=== PATIENT | male | born 1955 | race African-American/Black ===

== ENCOUNTER 2020-01-26 11:25 | Emergency (ER) | payer MEDICARE, SELFPAY ==
[2020-01-26 11:29] VITALS: BP 149/98; PULSE 88; RESP 18; O2SAT 99; BMI 18.8
--- NOTE | 2020-01-26 11:51 | ECG_ITS ---
APPROVED REPORT Exam: Resting ECG HR:86 bpm ECG Measurements Heart Rate 86 AXES [place] 164 P 40 QRSd 90 QRS -35 QT 424 T 110 QTc 507 <Conclusion> Sinus rhythm with occasional premature ventricular complexes Possible Left atrial enlargement Left axis deviation ST & T wave abnormality, consider lateral ischemia Prolonged QT Abnormal ECG Electronically signed by : Sony Simms, 01/27/2020 17:42:04
--- NOTE | 2020-01-26 11:56 | XR_ITS ---
PROCEDURE: XR CHEST PORTABLE CLINICAL HISTORY: chest pain COMPARISON: No exams were available for comparison FINDINGS: The lung chavez are fairly well expanded and appear clear of infiltrate. There is moderate cardiomegaly with left ventricular prominence. The pulmonary vascularity appears normal. There is a left-sided cardiac pacemaker with dual chamber electrodes both in good position. There monitor lines overlying the chest. There is no pleural fluid. Degenerative spurring is seen in both AC joints. IMPRESSION: Moderate cardiomegaly, no acute chest pathology noted Dictated by: Dr. Breezy Sood MD 01/26/2020 13:[address] Breezy Sood MD in [place] 01/26/2020 13:36
[2020-01-26 12:06] LABS: Basophils # 0.1 K/mm3 (0-0.2); Basophils % 0.8 % (0.1-2.0); Eosinophils # 0.3 K/mm3 (0.0-0.4); Hematocrit 40.8 % (42.0-52.0); Hemoglobin 13.6 g/dL (14.1-18.0); Lymphocytes # 3.1 K/mm3 (0.7-4.5); Lymphocytes % 31.3 % (10-50); Mean Corpuscular HGB Conc 33.4 g/dL (31.8-35.4); Mean Corpuscular Hemoglobin 31.8 pg (27.0-31.2); Mean Corpuscular Volume 95.2 fl (80-94); Mean Platelet Volume 8.4 fl (7.4-10.4); Monocytes # 0.5 K/mm3 (0.1-1.0); Monocytes % 5.4 % (1.7-9.3); Neutrophils # 5.9 K/mm3 (1.8-7.8); Neutrophils % 59.5 % (37.0-80.0); Platelet Count 189 K/mm3 (142-424); Red Blood Count 4.28 M/mm3 (4.60-6.20); Red Cell Distribution Width 14.1 % (11.5-17.5); White Blood Count 9.9 K/mm3 (4.8-10.8)
[2020-01-26 12:09] LABS: Chloride 98 mmol/L (98-107)
[2020-01-26 12:10] LABS: Potassium 3.5 mmoL/L (3.5-5.1); Sodium 141 mmol/L (136-145)
[2020-01-26 12:12] LABS: Blood Urea Nitrogen 13 mg/dl (9-20); Creatinine Clearance Estimated 47 mL/min (50-200); Estimated Glomerular Filt Rate 61 ml/min (>60); GFR (African American) 73 ML/MIN (>60)
[2020-01-26 12:13] LABS: Anion Gap 11.5 mEq/L (5-15); Calcium 9.2 mg/dl (8.4-10.2); Carbon Dioxide 35 mmol/L (22.0-30.0); Glucose 104 mg/dl (74-100)
[2020-01-26 12:29] LABS: Troponin I 0.01 ng/ml (0.00-0.034)
[2020-01-26 12:43] VITALS: BP 151/96; PULSE 77; O2SAT 97
[2020-01-26 13:07] VITALS: BP 157/100; PULSE 77; O2SAT 98
--- NOTE | 2020-01-26 13:11 | HMH.EDGENADL ---
ED Disposition Clinical Impression: Delusions Disposition: Home, Self-Care Condition on Discharge: Good Instructions: DI for Acute Pain -- Adult Referrals: Provider,Referral, [Primary Care Provider] - - Critical Care Critical Care Time: No Attestation: On 01/26/20, the high probability of a clinically significant, sudden or life threatening deterioration of the following system(s) required my full and direct attention, intervention and personal management. The time I documented below is in addition to time spent performing reported procedures but includes the following listed in this critical care notation. Medical Decision Making - Medical Records Medical records reviewed: Yes: I reviewed the patient's medical records. - Frederic Inquiry Pt receiving controlled substance: No Vital Signs: 01/26/20 11:29 01/26/20 12:43 01/26/20 13:07 Pulse Rate [Radial] 88 77 77 Respiratory Rate 18 Blood Pressure [Right Arm] 149/98 H 151/96 H 157/100 H Blood Pressure Mean [Right Arm] 115 114 119 Blood Pressure Source [Right Arm] Automatic Cuff Automatic Cuff Automatic Cuff Blood Pressure Position [Right Arm] Sitting Sitting Sitting 02 Sat by Pulse Oximetry 99 97 98 Oxygen Delivery Method Room Air Room Air Room Air - Lab Data Lab results reviewed: Yes: I reviewed the patient's lab results. Lab Results 01/26/20 11:52: WBC 9.9, RBC 4.28 L, Hgb 13.6 L, Hct 40.8 L, MCV 95.2 H, MCH 31.8 H, MCHC 33.4, RDW 14.1, Plt Count 189, MPV 8.4, Neut % (Auto) 59.5, Lymph % (Auto) 31.3, Reeves % (Auto) 5.4, Eos % (Auto) 3.0, Baso % (Auto) 0.8, Neut # (Auto) 5.9, Lymph # (Auto) 3.1, Reeves # (Auto) 0.5, Eos # (Auto) 0.3, Baso # (Auto) 0.1 01/26/20 11:52: Sodium 141, Potassium 3.5, Chloride 98, Carbon Dioxide 35 H, Anion Gap 11.5, BUN 13, Creatinine 1.20, Estimated Creat Clear 47, Estimated GFR 61, Est GFR ( Amer) 73, Glucose 104 H, Calcium 9.2, Troponin I 0.01 Result diagrams: 01/26/20 11:52 01/26/20 11:52 Orders (Tests/Meds): ORDERS Category Date Time Status XR chest portable Stat Exams 01/26/20 11:56 Taken Troponin I Q3H Lab 01/26/20 15:00 Ordered Troponin I Q3H Lab 01/26/20 18:00 Ordered - ECG Data Tracing #1 I reviewed this ECG and interpreted as documented below: Normal Sinus Rhythm: Yes General Adult HPI - General Chief complaint: PAIN Stated complaint: be checked out Time Seen by Provider: 01/26/20 13:11 Mode of Arrival: Wheelchair Source of Information: Patient Limitations: No Limitations Description of Symptoms (Recalled from ER Triage Doc. by RN): States he got a phone call from GOD this morning telling him he was having a heart attack. States he has been having left sided chest pain for approx 3 weeks. - History of Present Illness HPI narrative: 64-year-old pleasant gentleman presents the ED stating that he woke up this morning and he heard a voice in his head that was God telling him that he had a heart attack. He presents here with no other symptoms. He did state about 3 weeks ago he had some chest pain but presently he is pain-free. Patient denies any other symptoms. Patient states that he has no other symptoms. Patient denies any sore throat or cough. Patient denies any headache or shortness of breath. Patient denies any general malaise or fatigue. Patient does state he has some arthralgias but that is normal for him secondary to osteoarthritis. - Related Data Allergies Allergy/AdvReac Type Severity Reaction Status Date / Time No Known Allergies Allergy Verified 01/26/20 11:56 [facility] History - Hepatitis A Screen Drug use history?: No High risk sexual behaviors?: No History of sexually transmitted infection?: No Currently employed?: No Childcare worker?: No Do you have indoor plumbing?: Yes Do you have electricity?: Yes Attestation statement:: This patient has been screened for Hepatitis A risk factors. I have reviewed the patient's past medical history: Yes
[2020-01-26 13:37] VITALS: BP 156/98; PULSE 68; RESP 16; TEMP 36.8; O2SAT 97
== END 2020-01-26 13:38 | disposition home or self-care (01) ==
PROVIDERS: Emergency Provider Family Medicine
DX: F22 Delusional disorders (principal); R07.9 Chest pain, unspecified; E78.5 Hyperlipidemia, unspecified; I10 Essential (primary) hypertension
CPT/HCPCS: 71045; 80048; 84484; 85025; 93005; 99283

== ENCOUNTER 2020-02-13 09:26 | Emergency (ER) | payer OTHER, SELFPAY ==
[2020-02-13 09:29] VITALS: BP 134/92; PULSE 71; RESP 18; TEMP 36.6; O2SAT 98; BMI 25.2
[2020-02-13 10:15] LABS: Basophils # 0.1 K/mm3 (0-0.2); Eosinophils # 0.2 K/mm3 (0.0-0.4); Eosinophils % 2.8 % (0.1-12.0); Hematocrit 40.9 % (42.0-52.0); Hemoglobin 13.3 g/dL (14.1-18.0); Lymphocytes # 1.8 K/mm3 (0.7-4.5); Lymphocytes % 24.4 % (10-50); Mean Corpuscular HGB Conc 32.5 g/dL (31.8-35.4); Mean Corpuscular Hemoglobin 31.7 pg (27.0-31.2); Mean Corpuscular Volume 97.5 fl (80-94); Mean Platelet Volume 8.1 fl (7.4-10.4); Monocytes # 0.4 K/mm3 (0.1-1.0); Monocytes % 5.2 % (1.7-9.3); Neutrophils # 4.8 K/mm3 (1.8-7.8); Neutrophils % 66.7 % (37.0-80.0); Platelet Count 180 K/mm3 (142-424); Red Cell Distribution Width 14.8 % (11.5-17.5); White Blood Count 7.2 K/mm3 (4.8-10.8)
[2020-02-13 10:32] LABS: Chloride 101 mmol/L (98-107); Potassium 3.9 mmoL/L (3.5-5.1); Sodium 141 mmol/L (136-145)
[2020-02-13 10:34] LABS: Alanine Aminotransferase 16 U/L (12-78); Alkaline Phosphatase 86 U/L (38-126); Anion Gap 13.9 mEq/L (5-15); Aspartate Amino Transferase 36 U/L (17-59); Bilirubin,Total 1.8 mg/dl (0.2-1.3); Blood Urea Nitrogen 9 mg/dl (9-20); Carbon Dioxide 30 mmol/L (22.0-30.0); Creatinine Clearance Estimated 66 mL/min (50-200); Estimated Glomerular Filt Rate 67 ml/min (>60); GFR (African American) 81 ML/MIN (>60); Lipase 36 U/L (23-300)
[2020-02-13 10:35] LABS: Albumin Level 4.3 g/dl (3.5-5.0); Calcium 9.1 mg/dl (8.4-10.2); Globulin 4.3 g/dL (1.3-3.2); Glucose 143 mg/dl (74-100); Total Protein,Serum 8.6 g/dl (6.3-8.2)
[2020-02-13 10:42] VITALS: BP 141/91; PULSE 73; RESP 20; O2SAT 99
[2020-02-13 11:02] LABS: Microscopic, Urine URINE MICROSCOPIC (MICROSCOPIC)
[2020-02-13 11:04] LABS: Appearance,Urine CLEAR (Clear); Bilirubin,Urine Negative (Negative); Blood, Urine Negative (Negative); Color,Urine YELLOW (Yellow); Glucose,Urine (UA) Negative (Negative); Ketones,Urine Negative (Negative); Leukocyte Esterase,Urine Negative (Negative); Nitrate,Urine Negative (Negative); Protein,Urine Negative (Negative)
--- NOTE | 2020-02-13 11:20 | CT_ITS ---
PROCEDURE: CT ABDOMEN PELVIS W CON CLINICAL INDICATION: abd Generalized abdominal pain COMPARISON: No exams were available for comparison TECHNIQUE: IV Contrast: 75ML OPTIRAY 350 Oral Contrast None Axial images obtained with sagittal and coronal reformats. All CT scans at the facility use one or more dose reduction, viz: automated exposure control, ma/kV adjustment per patient size (including targeted exams where dose is matched to indication, i.e. head), or iterative reconstruction technique. FINDINGS: LOWER THORAX: Cardiomegaly. Extensive coronary artery calcification and/or stents. ABDOMEN & PELVIS: Diffuse fatty liver infiltration. Cholelithiasis with a contracted gallbladder. The spleen and adrenal glands have an unremarkable appearance as does the pancreas. The stomach is slightly distended with ingested material. No renal or ureteral calculi. No intestinal obstruction or free air. No evidence of appendicitis or diverticulitis. Bowel gas pattern is nonspecific. There is mild diverticulosis of the colon but no evidence of diverticulitis. There is fusion of the SI joints on both sides. IMPRESSION: 1. Contracted gallbladder with stones. 2. Diverticulosis of the colon without diverticulitis Dictated by: Raymundo Cook MD 02/13/2020 12:00 Electronically signed by Raymundo Cook MD in [place] 02/13/2020 12:00
[2020-02-13 11:29] LABS: WBC,Urine Occasional #/hpf (0-3)
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
[2020-02-13 12:33] VITALS: BP 143/80; PULSE 69; RESP 16; TEMP 36.8; O2SAT 100
== END 2020-02-13 12:33 | disposition home or self-care (01) ==
PROVIDERS: Emergency Provider Family Medicine
DX: K80.20 Calculus of gallbladder without cholecystitis without obstruction (principal)
CPT/HCPCS: 74177; 80053; 81001; 83690; 85025; 99283; 99284; Q9967

== ENCOUNTER → 2020-03-08 14:36 | Outpatient (CLI) | payer OTHER, SELFPAY ==
--- NOTE | 2020-03-08 | CA_ITS ---
APPROVED REPORT EXAM: Comprehensive 2D, Doppler, and color-flow Echocardiogram End Lathe Operator: Sharron Louie, RT(R) Ht: 5 ft 7 in Wt: 152lbs BSA: 1.80 BP: 134/92 mmHg Indications: SOA, edema, prior echo shows 15% EF 2D Dimensions LVOT 1.80 cm (M/F) 1.5-2.5 M-Mode Dimensions RVDd 2.54 cm (0.9-2.6) LVDd 5.92 cm (3.5-5.7) LVDs 5.59 cm (3.5-5.7) IVSd 1.33 cm (0.6-1.1) PWd 0.85 cm (0.6-1.1) EF (Teich) 12.40% FS 5.60% EDV (Teich) 174.60 mL ESV (Teich) 153.00 mL Left Ventricle Left atrium is moderately enlarged, left ventricle is mildly dilated, mild concentric left ventricular hypertrophy, severe reduced left ventricular systolic function, visually estimated ejection fraction 30%, left ventricle is globally hypokinetic, there is abnormal septal motion. Doppler evidence of raise left ventricular end-diastolic pressure. Right Ventricle Right atrium and right ventricle mildly enlarged, contractility of the right ventricle is normal, there is a pacemaker or AICD lead seen in the right ventricle. Aortic Valve Aortic valve is minimally thickened and fibrosed, there is no aortic stenosis. There is no significant aortic insufficiency. Mitral Valve Mitral valve leaflets are minimally thickened, there is no mitral stenosis, there is moderate to severe mitral regurgitation. There is tall A wave with restrictive filling pattern suggestive raise left ventricular end-diastolic pressure. Tricuspid Valve Tricuspid valve is grossly normal, there is moderate tricuspid regurgitation, tricuspid regurgitation jet velocity is inadequate for calculation of the right ventricular systolic pressure. Pulmonic Valve Pulmonic valve is poorly visualized. Great Vessels Aortic root is normal size. Pericardium No significant pericardial effusion noted. Inferior vena cava is dilated without significant inspiratory collapse. Conclusion 1. Biatrial enlargement, dilated left ventricle, reduced left ventricular systolic function, visually estimated ejection fraction 30%, left ventricle is globally hypokinetic, there is abnormal septal motion, Doppler evidence of raise left ventricular end-diastolic pressure. Diastolic parameters are inconclusive. 2. Mildly enlarged right ventricle with normal contractility. 3. Moderate to severe mitral and moderate tricuspid regurgitation, tricuspid regurgitation jet velocity is inadequate for calculation of the right ventricular systolic pressure. 4. No significant pericardial effusion noted 5. Inferior vena cava is dilated without significant inspiratory collapse. Electronically signed by : Horacio Love, 03/08/2020 15:37:47
== END ==
PROVIDERS: Visit Provider Internal Medicine
DX: I50.9 Heart failure, unspecified (principal); R06.02 Shortness of breath; R60.9 Edema, unspecified
CPT/HCPCS: 93306

== ENCOUNTER 2020-04-02 07:07 | Emergency (ER) | payer MEDICARE, MEDICAID, SELFPAY ==
[2020-04-02 07:09] VITALS: BP 131/89; PULSE 109; RESP 18; TEMP 36.5; O2SAT 99; BMI 22.6
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
--- NOTE | 2020-04-02 09:01 | PC.NURSE ---
ATTEMPTED PO CHALLENGE ON PT, PT WAS ABLE TO CONSUME WATER AND SWALLOW IT BUT IT DID CAUSE HIM SOME PAIN. MD NOTIFIED.
[2020-04-02 09:10] VITALS: BP 144/98; PULSE 102; RESP 20; TEMP 36.5; O2SAT 98
== END 2020-04-02 09:14 | disposition home or self-care (01) ==
PROVIDERS: Emergency Provider Emergency Medicine
DX: S19.9XXA Unspecified injury of neck, initial encounter (principal); Y04.2XXA Assault by strike against or bumped into by another person, initial encounter; Y92.018 Other place in single-family (private) house as the place of occurrence of the external cause
CPT/HCPCS: 70360; 99282

== ENCOUNTER 2020-04-22 21:29 | Emergency (ER) | payer MEDICARE, MEDICAID, SELFPAY ==
[2020-04-22 21:24] VITALS: BP 144/90; PULSE 81; RESP 16; TEMP 36.8; O2SAT 99; BMI 23.3
--- NOTE | 2020-04-22 21:45 | PC.NURSE ---
pt presents cursing and yelling at staff. pd called. pt contained. informed he is to quit with his excessive behaviors or he will be escorted out.
[2020-04-22 22:00] LABS: Basophils # 0.1 K/mm3 (0-0.2); Basophils % 0.8 % (0.1-2.0); Eosinophils # 0.1 K/mm3 (0.0-0.4); Eosinophils % 1.7 % (0.1-12.0); Hematocrit 38.8 % (42.0-52.0); Hemoglobin 12.3 g/dL (14.1-18.0); Lymphocytes # 1.3 K/mm3 (0.7-4.5); Mean Corpuscular HGB Conc 31.7 g/dL (31.8-35.4); Mean Corpuscular Hemoglobin 30.6 pg (27.0-31.2); Mean Corpuscular Volume 96.4 fl (80-94); Mean Platelet Volume 8.8 fl (7.4-10.4); Monocytes # 0.4 K/mm3 (0.1-1.0); Monocytes % 7.1 % (1.7-9.3); Neutrophils # 4.1 K/mm3 (1.8-7.8); Neutrophils % 68.4 % (37.0-80.0); Platelet Count 157 K/mm3 (142-424); Red Blood Count 4.02 M/mm3 (4.60-6.20); Red Cell Distribution Width 14.7 % (11.5-17.5); White Blood Count 5.9 K/mm3 (4.8-10.8)
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
[2020-04-22 22:03] VITALS: BP 122/86; PULSE 75; RESP 18; O2SAT 100
[2020-04-22 22:10] LABS: Alanine Aminotransferase 18 U/L (12-78); Albumin Level 3.8 g/dl (3.5-5.0); Albumin/Globulin Ratio 0.9 (1.1-1.8); Alkaline Phosphatase 79 U/L (38-126); Anion Gap 15.5 mEq/L (5-15); Aspartate Amino Transferase 43 U/L (17-59); Bilirubin,Total 2.1 mg/dl (0.2-1.3); Blood Urea Nitrogen 16 mg/dl (9-20); Calcium 8.7 mg/dl (8.4-10.2); Carbon Dioxide 29 mmol/L (22.0-30.0); Chloride 98 mmol/L (98-107); Creatinine Clearance Estimated 61 mL/min (50-200); Estimated Glomerular Filt Rate 67 ml/min (>60); GFR (African American) 81 ML/MIN (>60); Globulin 4.1 g/dL (1.3-3.2); Glucose 122 mg/dl (74-100); Potassium 3.5 mmoL/L (3.5-5.1); Sodium 139 mmol/L (136-145); Total Protein,Serum 7.9 g/dl (6.3-8.2)
[2020-04-22 22:30] VITALS: BP 127/91; PULSE 73; RESP 18; O2SAT 99
[2020-04-22 23:00] VITALS: BP 126/91; PULSE 70; RESP 18; O2SAT 98
--- NOTE | 2020-04-23 00:09 | PC.NURSE ---
Went into room to check on patient at this time. Found patient pulling up and buttoning his pants as well as a mess of stool in the trash can, in the bed, and on the floor. Staff asked pt what had happened and pt stated i shit in the trash can. When staff asked pt why he didnt call out for help to go to the restroom he stated because i didn't and became angry at staff. Pt was asked to ring his call virk next time he needed help toileting. Pt emptied trash can and threw soiled bag in the hallway.
[2020-04-23 00:10] VITALS: BP 124/80; PULSE 68; RESP 18; O2SAT 99
--- NOTE | 2020-04-23 00:11 | HMH.EDUROGM ---
ED Disposition Clinical Impression: Hydrocele in adult, Phimosis Disposition: Home, Self-Care Condition on Discharge: Fair Instructions: DI for Testicular Pain Additional Instructions: see pcp and urology for follo wup Referrals: PCP,No [Primary Care Provider] - Bob Chapa MD [Staff Physician] - - Critical Care Critical Care Time: No Attestation: On 04/22/20, the high probability of a clinically significant, sudden or life threatening deterioration of the following system(s) required my full and direct attention, intervention and personal management. The time I documented below is in addition to time spent performing reported procedures but includes the following listed in this critical care notation. Medical Decision Making - Medical Records Medical records reviewed: Yes: I reviewed the patient's medical records. - Frederic Inquiry Pt receiving controlled substance: No Vital Signs: 04/22/20 21:24 04/22/20 22:03 04/22/20 22:30 Temperature 98.2 F Temperature Source Oral Pulse Rate [Left] 81 75 73 Respiratory Rate 16 18 18 Blood Pressure [Right Arm] 144/90 H 122/86 127/91 H Blood Pressure Mean [Right Arm] 108 98 103 Blood Pressure Source [Right Arm] Automatic Cuff Blood Pressure Position [Right Arm] Sitting 02 Sat by Pulse Oximetry 99 100 99 Oxygen Delivery Method Room Air Room Air 04/22/20 23:00 04/23/20 00:10 Temperature Temperature Source Pulse Rate [Left] 70 68 Respiratory Rate 18 18 Blood Pressure [Right Arm] 126/91 H 124/80 Blood Pressure Mean [Right Arm] 102 94 Blood Pressure Source [Right Arm] Blood Pressure Position [Right Arm] 02 Sat by Pulse Oximetry 98 99 Oxygen Delivery Method - Lab Data Lab results reviewed: Yes: I reviewed the patient's lab results. Lab Results 04/22/20 21:41: WBC 5.9, RBC 4.02 L, Hgb 12.3 L, Hct 38.8 L, MCV 96.4 H, MCH 30.6, MCHC 31.7 L, RDW 14.7, Plt Count 157, MPV 8.8, Neut % (Auto) 68.4, Lymph % (Auto) 22.0, [place] % (Auto) 7.1, Eos % (Auto) 1.7, Baso % (Auto) 0.8, Neut # (Auto) 4.1, Lymph # (Auto) 1.3, [place] # (Auto) 0.4, Eos # (Auto) 0.1, Baso # (Auto) 0.1 04/22/20 21:41: Sodium 139, Potassium 3.5, Chloride 98, Carbon Dioxide 29, Anion Gap 15.5 H, BUN 16, Creatinine 1.10, Estimated Creat Clear 61, Estimated GFR 67, Est GFR ( Amer) 81, Glucose 122 H, Calcium 8.7, Total Bilirubin 2.1 H, AST 43, ALT 18, Alkaline Phosphatase 79, Total Protein 7.9, Albumin 3.8, Globulin 4.1 H, Albumin/Globulin Ratio 0.9 L Result diagrams: 04/22/20 21:41 04/22/20 21:41 Male Urogenital HPI - General Chief complaint: Urogenital-Male Stated complaint: testicle swelling Time Seen by Provider: 04/22/20 23:00 Mode of Arrival: EMS Source of Information: Patient, Medical Record Limitations: No Limitations Description of Symptoms (Recalled from ER Triage Doc. by RN): pt states he is here for three problems. 1. testicle swelling. 2. meredith in my stomach that hurts 3. itching all over my body. pt unwilling to explain further. pt is cussing and calling staff names. - History of Present Illness HPI Narrative: concerned about swollen testicles w/o trauma or fever or rash and no hematuria Complaint: testicle swelling Onset (ago): day(s) Duration: intermittent Severity: moderate Exacerbating factors: none Reports: denies other symptoms - Related Data Previous Rx's Medication Instructions Recorded Acetaminophen [Acetaminophen 120mg 120 mg RC QID 3 Days #15 supp.rect 02/13/20 suppository] Promethazine HCl [Phenergan 12.5mg 12.5 mg RC QID 3 Days #15 supp.rect 02/13/20 Supp] Allergies Allergy/AdvReac Type Severity Reaction Status Date / Time No Known Allergies Allergy Verified 01/26/20 11:56 [facility] History - Hepatitis A Screen Drug use history?: No High risk sexual behaviors?: No History of sexually transmitted infection?: No Currently employed?: No Childcare worker?: No Do you have indoor plumbing?: Yes Do you have shiloh
--- NOTE | 2020-04-23 00:20 | PC.NURSE ---
Pt was standing in the hallway at this time. Asked pt if he needed assistance. Pt yelled at staff to mind their damSolulink business and leave him alone. Pt was asked to remain in his room and use his call virk when needing assistance due to restrictions at this time.
[2020-04-23 00:26] VITALS: BP 131/78; PULSE 80; RESP 16; TEMP 36.6
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
--- NOTE | 2020-04-23 00:56 | PC.NURSE ---
cold rolling supervisor aware of the situation
== END 2020-04-23 00:45 | disposition home or self-care (01) ==
PROVIDERS: Emergency Provider Emergency Medicine
DX: N43.3 Hydrocele, unspecified; N47.1 Phimosis; F12.10 Cannabis abuse, uncomplicated; F17.210 Nicotine dependence, cigarettes, uncomplicated
CPT/HCPCS: 80053; 85025; 99283

== ENCOUNTER 2020-05-05 07:59 | Emergency (ER) | payer MEDICARE, SELFPAY ==
[2020-05-05 08:00] VITALS: BP 124/89; PULSE 102; RESP 17; TEMP 36.4; O2SAT 97; BMI 22.7
[2020-05-05 08:26] LABS: Basophils # 0.1 K/mm3 (0-0.2); Basophils % 1.1 % (0.1-2.0); Eosinophils # 0.3 K/mm3 (0.0-0.4); Eosinophils % 3.9 % (0.1-12.0); Hematocrit 38.4 % (42.0-52.0); Hemoglobin 12.2 g/dL (14.1-18.0); Lymphocytes # 1.3 K/mm3 (0.7-4.5); Lymphocytes % 18.5 % (10-50); Mean Corpuscular HGB Conc 31.7 g/dL (31.8-35.4); Mean Corpuscular Hemoglobin 30.8 pg (27.0-31.2); Mean Platelet Volume 8.2 fl (7.4-10.4); Monocytes # 0.6 K/mm3 (0.1-1.0); Neutrophils # 4.9 K/mm3 (1.8-7.8); Neutrophils % 67.6 % (37.0-80.0); Platelet Count 169 K/mm3 (142-424); Red Blood Count 3.96 M/mm3 (4.60-6.20); Red Cell Distribution Width 15.3 % (11.5-17.5); White Blood Count 7.2 K/mm3 (4.8-10.8)
[2020-05-05 08:31] LABS: Chloride 102 mmol/L (98-107); Sodium 139 mmol/L (136-145)
--- NOTE | 2020-05-05 08:33 | CT_ITS ---
PROCEDURE: CT ABDOMEN PELVIS W CON CLINICAL INDICATION: abd pain, testicular swelling, hx inguinal hernia. COMPARISON: CT CT ABDOMEN PELVIS W CON from 02/13/2020 TECHNIQUE: IV Contrast: 75ML OPTIRAY 350 Oral Contrast None Axial images obtained with sagittal and coronal reformats. All CT scans at the facility use one or more dose reduction, viz: automated exposure control, ma/kV adjustment per patient size (including targeted exams where dose is matched to indication, i.e. head), or iterative reconstruction technique. FINDINGS: LOWER THORAX: There is cardiomegaly. There is extensive coronary artery calcification. ABDOMEN & PELVIS: Low-density changes are present involving the liver consistent with fatty liver. The gallbladder is contracted with stones. There is mild thickening of the gallbladder wall. There is perihepatic and perisplenic fluid noted. There is heterogeneous density of the spleen with a questionable lesion in the dome of the spleen versus heterogeneous perfusion. This area measures 2.5 cm and may only be due to heterogeneous perfusion. Follow-up may confirm. No adrenal mass. Unremarkable appearing pancreas. No renal or ureteral calculi. There is diffuse subcutaneous edema consistent with anasarca with mild edematous changes of the peritoneal fat also noted in keeping with anasarca. Multiple unopacified bowel loops in the abdomen or pelvis which could obscure or mimic pathology. If symptoms persist, consider repeat exam with IV and oral contrast. The appendix is not well delineated but there is no convincing evidence of appendicitis. There is a small amount fluid in the pelvis. Urinary bladder wall is thickened. There is diffuse scrotal edema with bilateral hydroceles. There is soft tissue density in the right inguinal canal which may be related fluid or adenopathy. There is right inguinal hernia which contains fat and the fluid/soft tissue density. Atherosclerotic changes are noted. No acute bony findings. There are mild osteoarthritic changes of the hips and degenerative changes of the spine. IMPRESSION: 1. Anasarca with ascites 2. Fatty liver. 3. Heterogeneous density of the spleen with questionable 2.5 cm lesion in the dome of the spleen. Follow-up with hemangioma protocol suggested on outpatient basis. 4. Contracted gallbladder with cholelithiasis. 5. There is mild urinary bladder wall thickening which may be seen with incomplete distension, chronic outflow obstruction, or cystitis. 6. Multiple unopacified bowel loops in the abdomen or pelvis which could obscure or mimic pathology. If symptoms persist, consider repeat exam with IV and oral contrast. 7. Scrotal edema/hydroceles with right inguinal hernia containing fat with rounded soft tissue density in the right inguinal canal which may be due to fluid or adenopathy. This area measures 4.8 x 3.6 cm oval in nature Dictated by: Raymundo Cook MD 05/05/2020 09:55 Raymundo Cook MD in [facility] 05/05/2020 09:55
[2020-05-05 08:34] LABS: Alanine Aminotransferase 18 U/L (12-78); Albumin Level 3.4 g/dl (3.5-5.0); Albumin/Globulin Ratio 0.9 (1.1-1.8); Alkaline Phosphatase 67 U/L (38-126); Aspartate Amino Transferase 35 U/L (17-59); Bilirubin,Total 3.1 mg/dl (0.2-1.3); Blood Urea Nitrogen 12 mg/dl (9-20); Carbon Dioxide 29 mmol/L (22.0-30.0); Creatinine Clearance Estimated 68 mL/min (50-200); Estimated Glomerular Filt Rate 75 ml/min (>60); GFR (African American) 90 ML/MIN (>60); Globulin 3.7 g/dL (1.3-3.2); Total Protein,Serum 7.1 g/dl (6.3-8.2)
[2020-05-05 08:35] LABS: Calcium 8.8 mg/dl (8.4-10.2); Glucose 125 mg/dl (74-100)
[2020-05-05 08:39] LABS: Lactic Acid 2.2 mmol/L (0.7-2.1)
--- NOTE | 2020-05-05 08:48 | US_ITS ---
PROCEDURE: US TESTICULAR CLINICAL INDICATION: scrotal swelling COMPARISON: No exams were available for comparison FINDINGS: The right testicle is 4 x 2.7 x 2.7 cm. Left testicle is 3.8 x 2.7 x 2.5 cm. There is bilateral testicular blood flow without testicular mass. There are small bilateral hydroceles. There is diffuse edema of the scrotal wall. Prominent vascularity noted in the upper portion of the scrotum on both sides. Possible varicoceles.. Valsalva images are not submitted. The epididymi have an unremarkable appearance. IMPRESSION: 1. There is bilateral testicular blood flow with no obvious testicular mass. 2. There is diffuse scrotal edema with small bilateral hydroceles. 3. Possible small bilateral varicocele Dictated by: Raymundo Cook MD 05/05/2020 10:27 Raymundo Cook MD in [facility] 05/05/2020 10:27
--- NOTE | 2020-05-05 10:23 | PC.NURSE ---
vital signs delayed pt was in ct scan and us of scrotum.
[2020-05-05 10:53] VITALS: BP 147/101; PULSE 92; RESP 20; O2SAT 98
[2020-05-05 11:11] VITALS: BP 146/99; PULSE 92; RESP 18; O2SAT 94
--- NOTE | 2020-05-05 11:28 | [facility].EDGENADL ---
ED Disposition Clinical Impression: Scrotal pain, Scrotal swelling, Anasarca Disposition: Home, Self-Care Condition on Discharge: Fair Additional Instructions: These follow-up with your PCP in the urology follow-up that you were given. Take your medications as prescribed. If you have any new, changing, worsening, or concerning symptoms, come back to the emergency department. Referrals: Provider,Referral, [Primary Care Provider] - - Critical Care Critical Care Time: No Attestation: On 05/05/20, the high probability of a clinically significant, sudden or life threatening deterioration of the following system(s) required my full and direct attention, intervention and personal management. The time I documented below is in addition to time spent performing reported procedures but includes the following listed in this critical care notation. Medical Decision Making - Medical Records Medical records reviewed: Yes: I reviewed the patient's medical records. MR Comment: I took over care of this patient at shift change from Dr. Cui while awaiting scrotal ultrasound. CT of the abdomen pelvis was unrevealing. Scrotal ultrasound shows flow to both testicles, there is no evidence of epididymitis or orchitis. There is no cobblestoning of the skin, and I reexamined his testicles and perineal area and just showing anasarca. Does not appear infected on exam. Does not appear infected on imaging. I encouraged him to follow-up with his PCP and the urology follow-up that he was given this visit here a day or 2 ago. Labs are nonactionable. No leukocytosis. I asked the patient to give us urine specimen and he refuses. Given this, I explained to patient that the best thing he can do is follow-up he was also given strict return precautions. He verbalized understanding and agreement to the plan. Safe to discharge. - Frederic Inquiry Pt receiving controlled substance: No Vital Signs: 05/05/20 08:00 05/05/20 10:53 05/05/20 11:11 Temperature 97.6 F Temperature Source Oral Pulse Rate Pulse Rate [Right Radial] 102 H 92 H 92 H Respiratory Rate 17 20 18 Blood Pressure Blood Pressure [Right Arm] 124/89 147/101 H 146/99 H Blood Pressure Mean [Right Arm] 100 116 114 Blood Pressure Source [Right Arm] Automatic Cuff Blood Pressure Position [Right Arm] Sitting Supine 02 Sat by Pulse Oximetry 97 98 94 L Oxygen Delivery Method Room Air Room Air Room Air 05/05/20 11:43 05/05/20 12:03 Temperature 97.6 F Temperature Source Oral Pulse Rate 85 Pulse Rate [Right Radial] 92 H Respiratory Rate 20 15 Blood Pressure 124/89 Blood Pressure [Right Arm] 135/89 Blood Pressure Mean [Right Arm] 104 Blood Pressure Source [Right Arm] Automatic Cuff Blood Pressure Position [Right Arm] Supine 02 Sat by Pulse Oximetry 98 Oxygen Delivery Method Room Air - Lab Data Lab Results 05/05/20 08:07: WBC 7.2, RBC 3.96 L, Hgb 12.2 L, Hct 38.4 L, MCV 97.0 H, MCH 30.8, MCHC 31.7 L, RDW 15.3, Plt Count 169, MPV 8.2, Neut % (Auto) 67.6, Lymph % (Auto) 18.5, [place] % (Auto) 9.0, Eos % (Auto) 3.9, Baso % (Auto) 1.1, Neut # (Auto) 4.9, Lymph # (Auto) 1.3, [place] # (Auto) 0.6, Eos # (Auto) 0.3, Baso # (Auto) 0.1 05/05/20 08:07: Sodium 139, Potassium 4.0, Chloride 102, Carbon Dioxide 29, Anion Gap 12.0, BUN 12, Creatinine 1.00, Estimated Creat Clear 68, Estimated GFR 75, Est GFR ( Amer) 90, Glucose 125 H, Calcium 8.8, Total Bilirubin 3.1 H, AST 35, ALT 18, Alkaline Phosphatase 67, Total Protein 7.1, Albumin 3.4 L, Globulin 3.7 H, Albumin/Globulin Ratio 0.9 L 05/05/20 08:07: Lactate 2.2 H Result diagrams: 05/05/20 08:07 05/05/20 08:07 Orders (Tests/Meds): ED MEDICATIONS Discontinued Medications Generic Name Dose Route Start Last Admin Trade Name Freq PRN Reason Stop Dose Admin Ioversol 75 ml 05/05/20 09:30 05/05/20 09:32 Rad-Optiray 350 100ml Vial IV 05/05/20 09:31 75 ml ONCE ONE Administration Protocol Sodium Chl
[2020-05-05 11:43] VITALS: BP 135/89; PULSE 92; RESP 20; O2SAT 98
[2020-05-05 12:03] VITALS: BP 124/89; PULSE 85; RESP 15; TEMP 36.4; O2SAT 99
[2020-05-05 12:21] LABS: Reflex Lactic Add Lactic Reflex
== END 2020-05-05 12:04 | disposition home or self-care (01) ==
PROVIDERS: Emergency Provider Emergency Medicine
DX: N50.82 Scrotal pain (principal); N50.89 Other specified disorders of the male genital organs; R60.1 Generalized edema; F17.210 Nicotine dependence, cigarettes, uncomplicated
CPT/HCPCS: 74177; 76870; 80053; 83605; 85025; 87040; 99284; Q9967